=== PATIENT | female | born 1950 | race Caucasian/White ===

== ENCOUNTER 2017-07-03 18:18 | Emergency (ER) | payer MEDICARE, OTHER ==
[~2017-07-03] VITALS: Ht 162.6 cm; Wt 81.6 kg
[~2017-07-03 18:18] MED LIST: AMLO10TA2 PO; FLUO20CA36 PO; GLUC-108 PO; LOSA50TA21 PO
--- NOTE | 2017-07-04 00:53 | NUR ---
Peripheral IV removed.
--- NOTE | 2017-07-04 00:53 | NUR ---
Patient eloped from facility. ER physician notified. All belongings with patient. No acute distress. Denies chest pain/respiratory distress at this time. VSS.
== END 2017-07-04 00:57 | disposition left against medical advice (07) ==
LOC: ER 18:19
DX: Z53.21 Procedure and treatment not carried out due to patient leaving prior to being seen by health care provider (principal)
CPT/HCPCS: A4663

== ENCOUNTER 2020-03-19 12:05 | Emergency (ER) | payer MEDICARE, MEDICAID ==
[~2020-03-19] VITALS: Ht 160 cm; Wt 81.2 kg
[~2020-03-19 12:05] MED LIST changes: -AMLO10TA2 PO; +AMLO10TA7 PO; -LOSA50TA21 PO; +LOSA50TA39 PO
--- NOTE | 2020-03-19 12:58 | NUR ---
PT WAS EVALUATED BY DR CONTEH. PT WAS D/C'd TO HOME. D/C INSTRUCTIONS GIVEN TO THE PT BY DR CONTEH.
[2020-03-19 12:59] VITALS: BP 139/88
== END 2020-03-19 13:00 | disposition home or self-care (01) ==
LOC: ER 12:13
DX: S62.307A Unspecified fracture of fifth metacarpal bone, left hand, initial encounter for closed fracture (principal); W19.XXXA Unspecified fall, initial encounter; Y92.89 Other specified places as the place of occurrence of the external cause; S80.02XA Contusion of left knee, initial encounter; I25.2 Old myocardial infarction; I10 Essential (primary) hypertension; Z95.5 Presence of coronary angioplasty implant and graft; M19.032 Primary osteoarthritis, left wrist
CPT/HCPCS: 73110; 73130; A4663